=== PATIENT | female | born 1990 | race Caucasian/White ===

== ENCOUNTER 2024-04-18 20:35 | Emergency (ER) | payer BC, MEDICAID ==
[2024-04-18] MEDS: diphenhydrAMINE 25 MG Cap PO ONE (21:46)
== END 2024-04-18 21:45 | disposition home or self-care (01) ==
LOC: FB.ED 20:35
DX: T78.49XA Other allergy, initial encounter (principal); Z91.040 Latex allergy status; Z79.899 Other long term (current) drug therapy
CPT/HCPCS: 99283